=== PATIENT | female | born 1990 | race African-American/Black ===

== ENCOUNTER 2020-11-13 16:40 | Inpatient (IN) | payer MEDICARE ==
[2020-11-13] MEDS ORDERED: ZOLPIDEM TARTRATE 10 MG TABLET PO PRN (20:00)
[2020-11-13] MEDS ORDERED: QUEtiapine FUMARATE 100 MG TABLET PO PRN (20:00)
[2020-11-13 20:05] VITALS: BP 108/71
[2020-11-14 00:01] VITALS: BP 102/65
[2020-11-14] MEDS ORDERED: HALOPERIDOL LACTATE 5 MG/ML VIAL ONE ×2 (04:17→23:39)
[2020-11-14] MEDS ORDERED: LORazepam 2 MG/ML VIAL ONE ×2 (04:17→23:38)
[2020-11-14] MEDS ORDERED: DiphenhydrAMINE HCL 50 MG/ML VIAL ONE ×2 (04:17→23:39)
[2020-11-14] MEDS ORDERED: HALOPERIDOL LACTATE 5 MG/ML VIAL IM ONE ×2 (04:30→23:45)
[2020-11-14] MEDS ORDERED: DiphenhydrAMINE HCL 50 MG/ML VIAL IM ONE ×2 (04:30→23:45)
[2020-11-14] MEDS ORDERED: LORazepam 2 MG/ML VIAL IM ONE ×2 (04:30→23:45)
[2020-11-14] MEDS ORDERED: BACITRACIN 28 GM OINTMENT TP PRN (07:00)
[2020-11-14] MEDS ORDERED: DOCUSATE SODIUM 100 MG CAPSULE PO PRN (07:00)
[2020-11-14] MEDS ORDERED: ACETAMINOPHEN 325 MG TABLET PO PRN (07:00)
[2020-11-14] MEDS ORDERED: MAG HYDROX/AL HYDROX/SIMETH ES 30 ML SUSPENSION UDCUP PO PRN (07:00)
[2020-11-14] MEDS ORDERED: ONDANSETRON HCL 4 MG TABLET PO PRN (07:00)
[2020-11-14] MEDS ORDERED: OMEPRAZOLE 20 MG CAPSULE PO PRN (07:00)
[2020-11-14] MEDS ORDERED: BENZOCAINE/MENTHOL LOZENGE PO PRN (07:00)
[2020-11-14] MEDS ORDERED: CloNIDine HCL 0.1 MG TABLET PO PRN (07:00)
[2020-11-14] MEDS ORDERED: LOPERAMIDE HCL 2 MG CAPSULE PO PRN (07:00)
[2020-11-14] MEDS ORDERED: ALBUTEROL SULFATE HFA 90 MCG/PUFF 8 GM INHALER IH PRN (07:00)
[2020-11-14] MEDS ORDERED: PETROLATUM,WHITE 28 GM JELLY TP PRN (07:00)
[2020-11-14] MEDS ORDERED: MAGNESIUM HYDROXIDE SUSPENSION 30 ML UDCUP PO PRN (07:00)
[2020-11-14] MEDS ORDERED: IBUPROFEN 600 MG TABLET PO PRN (07:00)
[2020-11-14 08:07] VITALS: BP 130/77
[2020-11-14] MEDS: LORazepam 2 MG TABLET PO PRN (08:22)
[2020-11-14] MEDS: DIVALPROEX SODIUM 500 MG DR TABLET PO SCH ×2 (10:12→17:00)
[2020-11-14 16:18] VITALS: BP 110/65
[2020-11-15 01:00] VITALS: BP 124/62
[2020-11-15 08:00] LABS: EOSINOPHILS % (AUTO) 3.7 % (1.0-6.0); HEMATOCRIT 40.2 % (36-46); LYMPHOCYTES # (AUTO) 1.6 K/uL (1.0-4.8); LYMPHOCYTES % (AUTO) 24.4 % (22.0-44.0); MEAN CORPUSCULAR HEMOGLOBIN 27.7 pg (26.0-34.0); MEAN CORPUSCULAR HGB CONC 32.3 G/dL (31.0-37.0); MEAN CORPUSCULAR VOLUME 86 fL (80-100); MONOCYTES # (AUTO) 0.4 K/uL (0.1-1.0); MONOCYTES % (AUTO) 6.8 % (2.0-9.0); NEUTROPHILS # (AUTO) 4.3 K/uL (1.8-7.7); NEUTROPHILS % (AUTO) 65.1 % (40.0-70.0); PLATELET COUNT (AUTO) 260 K/uL (150-450); RED BLOOD CELL COUNT(AUTO) 4.68 MIL/uL (4.00-5.20); RED CELL DISTRIBUTION WIDTH 14.8 % (11.5-14.5)
[2020-11-15 08:13] VITALS: BP 120/68
[2020-11-15 08:33] LABS: ALANINE AMINOTRANSFERASE 20 U/L (12-78); ALBUMIN 3.2 g/dL (3.4-5.0); ALKALINE PHOSPHATASE 56 U/L (46-116); ANION GAP 6 mmol/L (8-16); ASPARTATE AMINOTRANSFERASE 20 U/L (15-37); BILIRUBIN,TOTAL 0.4 mg/dL (0.1-1.0); CALCIUM, TOTAL 8.6 mg/dL (8.8-10.5); CARBON DIOXIDE 28 mmol/L (22-29); CHLORIDE 106 mmol/L (98-107); CHOL/HDL RATIO 2.5 (3.9-5.7); CHOLESTEROL 125 mg/dL (131-200); CREATININE 0.56 mg/dL (0.60-1.30); FREE T4 (FREE THYROXINE) 1.44 ng/dL (0.76-1.46); GLOMERULAR FILTR. RATE CALC > 60 mL/min (>60); GLUCOSE,RANDOM 78 mg/dL (70-110); HCG,QUANTITATIVE < 1 mIU/mL (0-6); HDL CHOLESTEROL 50 mg/dL (40-60); LDL CHOL (CALC.) 67 mg/dL (0-130); POTASSIUM 3.7 mmol/L (3.5-5.1); SODIUM SERUM 140 mmol/L (136-145); TRIGLYCERIDES 38 mg/dL (15-150); UREA NITROGEN, BLOOD 11 mg/dL (7-18)
[2020-11-15 08:34] LABS: HEMOGLOBIN A1C 5.3 % (3.8-5.6)
[2020-11-15] MEDS: LORazepam 2 MG TABLET PO PRN (09:37)
[2020-11-15] MEDS: DIVALPROEX SODIUM 500 MG DR TABLET PO SCH ×2 (09:37→17:00)
[2020-11-15 16:10] VITALS: BP 113/68
[2020-11-16 00:14] VITALS: BP 116/70
[2020-11-16] MEDS: MULTIVITAMINS WITH MINERALS, THERAPEUTIC TABLET PO SCH (07:55)
[2020-11-16 08:07] VITALS: BP 127/65
[2020-11-16] MEDS: DIVALPROEX SODIUM 500 MG DR TABLET PO SCH ×2 (08:10→16:57)
[2020-11-16] MEDS: LORazepam 2 MG TABLET PO PRN (12:37)
[2020-11-16 16:03] VITALS: BP 121/74
[2020-11-16] MEDS ORDERED: HALOPERIDOL LACTATE 5 MG/ML VIAL IM ONE (16:20)
[2020-11-16] MEDS ORDERED: DiphenhydrAMINE HCL 50 MG/ML VIAL IM ONE (16:20)
[2020-11-16] MEDS ORDERED: LORazepam 2 MG/ML VIAL IM ONE (16:20)
[2020-11-17 00:48] VITALS: BP 115/65
[2020-11-17] MEDS: LORazepam 2 MG TABLET PO PRN ×4 (01:26→23:17)
[2020-11-17] MEDS: MULTIVITAMINS WITH MINERALS, THERAPEUTIC TABLET PO SCH (08:03)
[2020-11-17] MEDS: DIVALPROEX SODIUM 500 MG DR TABLET PO SCH ×2 (08:04→17:00)
[2020-11-17 08:11] VITALS: BP 110/63
[2020-11-17] MEDS: LORATADINE 10 MG TABLET PO PRN (09:32)
[2020-11-17 16:08] VITALS: BP 109/58
[2020-11-18] VITALS: BP 102/63
[2020-11-18] MEDS ORDERED: DIVA-112 PO (01:51)
[2020-11-18] MEDS: LORazepam 2 MG TABLET PO PRN (04:39)
[2020-11-18] MEDS: LORATADINE 10 MG TABLET PO PRN (05:35)
[2020-11-18 08:17] VITALS: BP 128/72
[2020-11-18] MEDS: DIVALPROEX SODIUM 500 MG DR TABLET PO SCH (08:23)
[2020-11-18] MEDS: MULTIVITAMINS WITH MINERALS, THERAPEUTIC TABLET PO SCH (08:24)
== END 2020-11-18 10:00 | disposition home or self-care (01) | DRG 885 ==
LOC: B3A 19:58
PROVIDERS: ADMIT Psychiatry & Neurology Psychiatry; ATTEND Psychiatry & Neurology Psychiatry
DX: F25.9 Schizoaffective disorder, unspecified (principal); K59.00 Constipation, unspecified; F41.9 Anxiety disorder, unspecified; G47.00 Insomnia, unspecified; F12.90 Cannabis use, unspecified, uncomplicated; F19.10 Other psychoactive substance abuse, uncomplicated; F17.200 Nicotine dependence, unspecified, uncomplicated
CPT/HCPCS: 83036; 84439; 84443; 87081; J1200; J1630; J2060

== ENCOUNTER 2020-12-18 21:23 | Inpatient (IN) | payer MEDICARE ==
[~2020-12-18] VITALS: Ht 162.6 cm; Wt 59.4 kg
[~2020-12-18 21:23] MED LIST: DIVA-112 PO
[2020-12-19 06:05] VITALS: BP 117/72
[2020-12-19] MEDS ORDERED: ARIP10TA38 PO (07:10)
[2020-12-19] MEDS ORDERED: CEPH250 PO (07:11)
[2020-12-19 08:11] VITALS: BP 120/82
[2020-12-19] MEDS: DIVALPROEX SODIUM 500 MG DR TABLET PO SCH ×3 (10:15→17:14)
[2020-12-19] MEDS: ARIPiprazole 10 MG TABLET PO SCH (10:23)
[2020-12-19] MEDS: CEPHALEXIN MONOHYDRATE 250 MG CAPSULE PO SCH ×2 (12:17→17:14)
[2020-12-19 16:14] VITALS: BP 116/79
[2020-12-19] MEDS ORDERED: HydrOXYzine HCL 25 MG TABLET PO SCH (22:00)
[2020-12-19] MEDS: GABAPENTIN 300 MG CAPSULE PO SCH (22:12)
[2020-12-19] MEDS: HydrOXYzine PAMOATE 25 MG CAPSULE PO SCH (23:06)
[2020-12-20] MEDS ORDERED: HALOPERIDOL 5 MG TABLET PO PRN (01:30)
[2020-12-20] MEDS ORDERED: ZOLPIDEM TARTRATE 10 MG TABLET PO PRN (01:30)
[2020-12-20] MEDS ORDERED: IBUPROFEN 600 MG TABLET PO PRN (01:45)
[2020-12-20 01:49] VITALS: BP 119/82
[2020-12-20] MEDS: LORazepam 2 MG TABLET PO PRN ×2 (03:38→17:35)
[2020-12-20] MEDS: ARIPiprazole 10 MG TABLET PO SCH (08:34)
[2020-12-20] MEDS: CEPHALEXIN MONOHYDRATE 250 MG CAPSULE PO SCH ×3 (08:36→16:26)
[2020-12-20] MEDS: HydrOXYzine PAMOATE 25 MG CAPSULE PO SCH ×3 (08:36→16:26)
[2020-12-20] MEDS: GABAPENTIN 300 MG CAPSULE PO SCH ×3 (08:36→16:26)
[2020-12-20] MEDS: DIVALPROEX SODIUM 500 MG DR TABLET PO SCH ×3 (08:39→16:28)
[2020-12-20 08:43] VITALS: BP 115/77
[2020-12-20] MEDS ORDERED: HydrOXYzine PAMOATE 25 MG CAPSULE PO SCH (09:00)
[2020-12-20 16:34] VITALS: BP 110/70
[2020-12-21 02:56] VITALS: BP 107/74
[2020-12-21] MEDS: LORazepam 2 MG TABLET PO PRN (05:43)
[2020-12-21 08:14] VITALS: BP 116/69
[2020-12-21] MEDS ORDERED: HYDR-4031 PO (08:37)
[2020-12-21] MEDS: GABAPENTIN 300 MG CAPSULE PO SCH (08:43)
[2020-12-21] MEDS: ARIPiprazole 10 MG TABLET PO SCH (08:43)
[2020-12-21] MEDS: CEPHALEXIN MONOHYDRATE 250 MG CAPSULE PO SCH (08:43)
[2020-12-21] MEDS: DIVALPROEX SODIUM 500 MG DR TABLET PO SCH (09:00)
[2020-12-21] MEDS: HydrOXYzine PAMOATE 25 MG CAPSULE PO SCH (10:29)
== END 2020-12-21 10:30 | disposition home or self-care (01) | DRG 885 ==
LOC: B3A 12-19 04:59
PROVIDERS: ADMIT Psychiatry & Neurology Psychiatry; ATTEND Psychiatry & Neurology Psychiatry
DX: F31.9 Bipolar disorder, unspecified (principal); F12.90 Cannabis use, unspecified, uncomplicated; F17.200 Nicotine dependence, unspecified, uncomplicated; F20.9 Schizophrenia, unspecified; F41.9 Anxiety disorder, unspecified; G47.00 Insomnia, unspecified; K59.00 Constipation, unspecified; Z79.899 Other long term (current) drug therapy; Z88.8 Allergy status to other drugs, medicaments and biological substances
CPT/HCPCS: Z7610

== ENCOUNTER 2021-01-03 16:35 | Inpatient (IN) | payer MEDICARE ==
[~2021-01-03] VITALS: Ht 162.6 cm; Wt 59.9 kg
[~2021-01-03 16:35] MED LIST changes: +ARIP10TA38 PO; +CEPH250 PO; +HYDR-4031 PO
[2021-01-03] MEDS ORDERED: HALOPERIDOL 5 MG TABLET PO PRN (22:00)
[2021-01-03] MEDS ORDERED: ZOLPIDEM TARTRATE 10 MG TABLET PO PRN (22:00)
[2021-01-03 22:27] VITALS: BP 102/69
[2021-01-03] MEDS: LORazepam 2 MG TABLET PO PRN (23:07)
[2021-01-04 00:19] VITALS: BP 116/71
[2021-01-04] MEDS ORDERED: ONDANSETRON HCL 4 MG TABLET PO PRN (07:00)
[2021-01-04] MEDS ORDERED: MAGNESIUM HYDROXIDE SUSPENSION 30 ML UDCUP PO PRN (07:00)
[2021-01-04] MEDS ORDERED: ACETAMINOPHEN 325 MG TABLET PO PRN (07:00)
[2021-01-04] MEDS ORDERED: OMEPRAZOLE 20 MG CAPSULE PO PRN (07:00)
[2021-01-04] MEDS ORDERED: PETROLATUM,WHITE 28 GM JELLY TP PRN (07:00)
[2021-01-04] MEDS ORDERED: BENZOCAINE/MENTHOL LOZENGE PO PRN (07:00)
[2021-01-04] MEDS ORDERED: LOPERAMIDE HCL 2 MG CAPSULE PO PRN (07:00)
[2021-01-04] MEDS ORDERED: CloNIDine HCL 0.1 MG TABLET PO PRN (07:00)
[2021-01-04] MEDS ORDERED: BACITRACIN 28 GM OINTMENT TP PRN (07:00)
[2021-01-04] MEDS ORDERED: ALBUTEROL SULFATE HFA 90 MCG/PUFF 8 GM INHALER IH PRN (07:00)
[2021-01-04] MEDS ORDERED: IBUPROFEN 600 MG TABLET PO PRN (07:00)
[2021-01-04] MEDS ORDERED: DOCUSATE SODIUM 100 MG CAPSULE PO PRN (07:00)
[2021-01-04] MEDS ORDERED: MAG HYDROX/AL HYDROX/SIMETH ES 30 ML SUSPENSION UDCUP PO PRN (07:00)
[2021-01-04 07:57] LABS: BASOPHILS % (AUTO) 0.1 % (0.0-2.0); EOSINOPHILS % (AUTO) 1.9 % (1.0-6.0); HEMATOCRIT 38.4 % (36-46); HEMOGLOBIN 12.5 g/dL (12.0-16.0); LYMPHOCYTES % (AUTO) 15.6 % (22.0-44.0); MEAN CORPUSCULAR HGB CONC 32.6 G/dL (31.0-37.0); MEAN CORPUSCULAR VOLUME 86 fL (80-100); MONOCYTES # (AUTO) 0.5 K/uL (0.1-1.0); MONOCYTES % (AUTO) 7.6 % (2.0-9.0); NEUTROPHILS # (AUTO) 4.9 K/uL (1.8-7.7); NEUTROPHILS % (AUTO) 74.8 % (40.0-70.0); PLATELET COUNT (AUTO) 263 K/uL (150-450); RED BLOOD CELL COUNT(AUTO) 4.48 MIL/uL (4.00-5.20); RED CELL DISTRIBUTION WIDTH 14.8 % (11.5-14.5)
[2021-01-04 08:19] LABS: ALANINE AMINOTRANSFERASE 19 U/L (12-78); ALBUMIN 3.5 g/dL (3.4-5.0); ALKALINE PHOSPHATASE 71 U/L (46-116); ANION GAP 8 mmol/L (8-16); ASPARTATE AMINOTRANSFERASE 13 U/L (15-37); BILIRUBIN,TOTAL 0.3 mg/dL (0.1-1.0); CALCIUM, TOTAL 8.7 mg/dL (8.8-10.5); CARBON DIOXIDE 29 mmol/L (22-29); CHLORIDE 102 mmol/L (98-107); CHOL/HDL RATIO 2.6 (3.9-5.7); CHOLESTEROL 138 mg/dL (131-200); CREATININE 0.76 mg/dL (0.60-1.30); FREE T4 (FREE THYROXINE) 1.07 ng/dL (0.76-1.46); GLOMERULAR FILTR. RATE CALC > 60 mL/min (>60); GLUCOSE,RANDOM 88 mg/dL (70-110); HDL CHOLESTEROL 54 mg/dL (40-60); LDL CHOL (CALC.) 77 mg/dL (0-130); POTASSIUM 4.6 mmol/L (3.5-5.1); SODIUM SERUM 139 mmol/L (136-145); THYROID STIMULATING HORMONE 1.16 uIU/mL (0.36-3.74); TOTAL PROTEIN, SERUM 6.9 g/dL (6.4-8.2); TRIGLYCERIDES 33 mg/dL (15-150); UREA NITROGEN, BLOOD 9 mg/dL (7-18)
[2021-01-04 08:26] VITALS: BP 111/76
[2021-01-04] MEDS: LORazepam 2 MG TABLET PO PRN ×2 (08:43→12:52)
[2021-01-04] MEDS: HydrOXYzine PAMOATE 25 MG CAPSULE PO SCH (16:09)
[2021-01-04] MEDS: ARIPiprazole 10 MG TABLET PO SCH (16:10)
[2021-01-04 16:12] VITALS: BP 104/73
[2021-01-04] MEDS: DIVALPROEX SODIUM 500 MG DR TABLET PO SCH (16:12)
[2021-01-05 01:37] VITALS: BP 117/69
[2021-01-05] MEDS: LORazepam 2 MG TABLET PO PRN ×2 (04:51→11:34)
[2021-01-05 07:37] LABS: APPEARANCE,URINE CLEAR (CLEAR); BILIRUBIN,URINE NEGATIVE (NEGATIVE); GLUCOSE, URINE (UA) NEGATIVE (NEGATIVE); KETONES,URINE NEGATIVE (NEGATIVE); LEUKOCYTE ESTERASE ,URINE SMALL (NEGATIVE); NITRATE,URINE NEGATIVE (NEGATIVE); OCCULT BLOOD,URINE NEGATIVE (NEGATIVE); PROTEIN,URINE NEGATIVE (NEGATIVE); UROBILINOGEN,URINE 0.2 mg/dL (<=1.0)
[2021-01-05 07:44] LABS: AMPHET/METH SCREEN,URINE NEGATIVE (NEGATIVE); BARBITURATE SCREEN, URINE NEGATIVE (NEGATIVE); BENZODIAZEPINES SCREEN,URINE NEGATIVE (NEGATIVE); CANNABINOID SCREEN,URINE NEGATIVE (NEGATIVE); COCAINE SCREEN,URINE NEGATIVE (NEGATIVE); METHADONE SCREEN, URINE NEGATIVE (NEGATIVE); OPIATE SCREEN,URINE NEGATIVE (NEGATIVE)
[2021-01-05 07:49] LABS: PHENCYCLIDINE SCREEN,URINE NEGATIVE (NEGATIVE)
[2021-01-05 07:58] LABS: BACTERIA,URINE None Seen /HPF (None Seen); RBC,URINE None Seen /HPF (0-2); SQUAMOUS EPITHELIAL CELL,UR Few /LPF (None Seen)
[2021-01-05 08:08] VITALS: BP 113/69
[2021-01-05] MEDS: HydrOXYzine PAMOATE 25 MG CAPSULE PO SCH ×3 (08:44→16:42)
[2021-01-05] MEDS: DIVALPROEX SODIUM 500 MG DR TABLET PO SCH ×2 (08:44→16:43)
[2021-01-05] MEDS: ARIPiprazole 10 MG TABLET PO SCH (08:44)
[2021-01-05 16:10] VITALS: BP 111/64
[2021-01-06 03:07] VITALS: BP 114/66
[2021-01-06] MEDS: HydrOXYzine PAMOATE 25 MG CAPSULE PO SCH ×3 (08:05→16:25)
[2021-01-06] MEDS: ARIPiprazole 10 MG TABLET PO SCH (08:05)
[2021-01-06] MEDS: DIVALPROEX SODIUM 500 MG DR TABLET PO SCH ×2 (08:07→16:32)
[2021-01-06 08:19] VITALS: BP 126/67
[2021-01-06] MEDS: LORazepam 2 MG TABLET PO PRN ×3 (09:35→21:21)
[2021-01-06 16:11] VITALS: BP 124/67
[2021-01-06] MEDS: LITHIUM CARBONATE 300 MG CAPSULE PO SCH (16:32)
[2021-01-07 04:06] VITALS: BP 119/69
[2021-01-07] MEDS: HydrOXYzine PAMOATE 25 MG CAPSULE PO SCH ×3 (08:01→16:51)
[2021-01-07 08:10] VITALS: BP 115/76
[2021-01-07] MEDS: ARIPiprazole 15 MG TABLET PO SCH (09:00)
[2021-01-07] MEDS: LITHIUM CARBONATE 300 MG CAPSULE PO SCH ×2 (09:00→16:51)
[2021-01-07] MEDS: DIVALPROEX SODIUM 500 MG DR TABLET PO SCH ×2 (09:00→16:50)
[2021-01-07 16:13] VITALS: BP 103/65
[2021-01-07] MEDS: LORazepam 2 MG TABLET PO PRN (16:43)
[2021-01-08 00:36] VITALS: BP 104/71
[2021-01-08] MEDS: LORazepam 2 MG TABLET PO PRN (00:45)
[2021-01-08 08:25] VITALS: BP 107/68
[2021-01-08] MEDS: HydrOXYzine PAMOATE 25 MG CAPSULE PO SCH ×2 (09:00→12:40)
[2021-01-08] MEDS: DIVALPROEX SODIUM 500 MG DR TABLET PO SCH (09:00)
[2021-01-08] MEDS: ARIPiprazole 15 MG TABLET PO SCH (09:00)
[2021-01-08] MEDS: LITHIUM CARBONATE 300 MG CAPSULE PO SCH (09:00)
[2021-01-08] MEDS ORDERED: ARIP15TA27 PO (11:40)
[2021-01-08] MEDS ORDERED: LITH300C3 PO (11:40)
== END 2021-01-08 14:30 | disposition home or self-care (01) | DRG 885 ==
LOC: B3A 21:40
PROVIDERS: ADMIT Psychiatry & Neurology Psychiatry; ATTEND Psychiatry & Neurology Psychiatry
DX: F31.9 Bipolar disorder, unspecified (principal); F41.9 Anxiety disorder, unspecified; G47.00 Insomnia, unspecified; K59.00 Constipation, unspecified; Z71.6 Tobacco abuse counseling; F19.10 Other psychoactive substance abuse, uncomplicated
CPT/HCPCS: 80053; 80061; 80307; 81001; 84439; 84443; 85025; 87081